=== PATIENT | male | born 1985 | race Caucasian/White ===

== ENCOUNTER 2017-03-20 16:54 | Emergency (ER) | payer SELFPAY ==
[2017-03-20] MEDS ORDERED: PROZAC10 M1 PO (17:04)
[2017-03-20 18:12] LABS: INFLUENZA A NEG (NEG); INFLUENZA B NEG (NEG)
== END 2017-03-20 18:32 | disposition home or self-care (01) ==
LOC: SED 16:54 → CED 17:15 → SED 17:15
PROVIDERS: Physician Assistant
DX: J06.9 Acute upper respiratory infection, unspecified (principal); H66.91 Otitis media, unspecified, right ear; F32.9 Major depressive disorder, single episode, unspecified; Z79.899 Other long term (current) drug therapy
CPT/HCPCS: 87651; 87804; 99283